=== PATIENT | male | born 2005 | race Caucasian/White ===

== ENCOUNTER 2024-01-25 16:07 | Outpatient (CLI) | payer OTHER, SELFPAY | END 2024-01-25 16:08 | disposition home or self-care (01) | LOC: NFLDREF 16:07 | PROVIDERS: PCP Family Medicine; Visit Provider Family Medicine | DX: Z67.40 Type O blood, Rh positive (principal) | CPT/HCPCS: 86900; 86901 ==

== ENCOUNTER 2025-07-22 12:53 | Outpatient (CLI) | payer OTHER, SELFPAY ==
--- NOTE | 2025-07-22 13:00 | CRLHL7_ITS ---
For Patients: As a result of the Century Cures Act, medical imaging exams and procedure reports are released immediately into your electronic medical record. You may view this report before your referring provider. If you have questions, please contact your health care provider. CLINICAL INDICATION: Right hip pain. Prior injury. COMPARISON IMAGING STUDIES: Radiographs 07/14/2025. TECHNICAL: Axial, axial oblique, sagittal and coronal PDFS small field of view images of the right hip. Coronal and axial T1 and PDFS large field of view images of the entire pelvis. 1.5 [employer] MR scanner. 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 No significant femoral head-neck junction osseous bump. No right hip joint effusion. The articular surfaces are maintained without focal cartilage defect. No discrete labral tear. No paralabral cyst. LEFT HIP: No left hip joint effusion. Technique not optimized for evaluation of internal derangement of the left hip. On coronal PD fat-sat images number 17 through 19 of series 4, there is increased signal within the posterior superior labrum which could indicate labral tearing. Articular surfaces appear maintained. No significant femoral head-neck junction osseous bump. There appears to be decreased acetabular anteversion superiorly suggesting an element of pincer morphology of the acetabulum. OSSEOUS STRUCTURES: No acute fracture. No avascular necrosis. MUSCULOTENDINOUS STRUCTURES AND BURSAE: Distal gluteal tendons are intact. No trochanteric bursitis. Common hamstring tendons intact. Distal iliopsoas tendons are intact. No iliopsoas bursitis. Conjoined adductor tendons are intact. OTHER FINDINGS: Pubic symphysis intact. Sacroiliac joints maintained. INTRAPELVIC CONTENTS: No mass, fluid collection or adenopathy. No inguinal hernia. IMPRESSION: 1. 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 No significant femoral head-neck junction osseous bump. The articular surfaces are maintained. No definitive labral tear. 2. On the contralateral left side, possible tearing of the posterior superior labrum. Technique not optimized for evaluation of intra-articular pathology of the left hip. 3. No fracture or stress change. 4. No tendon tearing or bursitis. Dictated by Oneil White MD @ 07/23/2025 8:14:02 AM (Electronically Signed)
== END 2025-07-22 12:54 | disposition home or self-care (01) ==
LOC: MRI 12:54
PROVIDERS: PCP Family Medicine; Visit Provider Internal Medicine
DX: M25.551 Pain in right hip (principal); S73.192A Other sprain of left hip, initial encounter; R10.31 Right lower quadrant pain
CPT/HCPCS: 73721